=== PATIENT | female | born 1955 | race Caucasian/White ===

== ENCOUNTER 2022-10-04 12:38 | Emergency (ER) | payer MEDICARE ==
[2022-10-04] MEDS ORDERED: LORazepam 2 MG/ML SDV IM ONE (13:16)
== END 2022-10-04 14:35 | disposition home or self-care (01) ==
LOC: JP.ED 12:38
DX: J40 Bronchitis, not specified as acute or chronic (principal); F45.8 Other somatoform disorders; I10 Essential (primary) hypertension; E66.9 Obesity, unspecified; Z68.34 Body mass index [BMI] 34.0-34.9, adult; Z88.8 Allergy status to other drugs, medicaments and biological substances; Z79.82 Long term (current) use of aspirin; Z79.899 Other long term (current) drug therapy
CPT/HCPCS: 96372; 99284; J2060; 99283

== ENCOUNTER 2023-04-25 09:50 | Inpatient (IN) | payer MEDICARE ==
[2023-04-25] MEDS ORDERED: Ondansetron 4 MG/2 ML SDV IVPUSH ONE (10:34)
[2023-04-25] MEDS ORDERED: HYDROmorphone 0.5 MG/0.5 ML Syringe IVPUSH ONE (10:34)
[2023-04-25 10:40] LABS: CARBOXYHEMOGLOBIN 1.6 % (0.0-1.6); O2 SATURATION VENOUS 51.9; OXYHEMOGLOBIN 50.6 %; PH,VENOUS 7.505 (7.350-7.450); TOTAL HEMOGLOBIN 14.5 g/dL (12.0-16.0)
[2023-04-25 10:44] LABS: BASE EXCESS VENOUS -1.4 mm/L; BICARBONATE,VENOUS 19.7 mmol/L; PCO2 VENOUS 25.2 mm/Hg; PO2 VENOUS 25.4 mm/Hg
[2023-04-25] MEDS ORDERED: Sodium Chloride 0.9% 1,000 ML IV SCH ×2 (10:45→12:30)
[2023-04-25 10:47] LABS: HEMATOCRIT 40.2 % (34.3-46.0); MEAN CORPUSCULAR HGB CONC 34.8 g/dL (31.6-35.5); MEAN CORPUSCULAR VOLUME 86.3 fL (81.4-99.0); PLATELET COUNT,PLT 261 K/uL (130-375); RED BLOOD CELL COUNT 4.66 M/uL (3.77-5.24); WHITE BLOOD CELL COUNT,WBC 17.3 K/uL (3.2-11.0)
[2023-04-25 10:50] LABS: APPEARANCE,URINE CLEAR (CLEAR); BILIRUBIN,URINE NEGATIVE (NEGATIVE); COLOR,URINE YELLOW (YELLOW); GLUCOSE,URINE NEGATIVE (NEGATIVE); KETONES,URINE TRACE mg/dL (NEGATIVE); LEUKOCYTE ESTERASE,URINE TRACE (NEGATIVE); NITRITE,URINE NEGATIVE (NEGATIVE); OCCULT BLOOD,URINE SMALL (NEGATIVE); PROTEIN,URINE 30 mg/dL (NEGATIVE); UROBILINOGEN,URINE 0.2 EU/dL (0.2-1.0)
[2023-04-25 10:55] LABS: AMORPHOUS SEDIMENT,URINE NOT SEEN; BACTERIA,URINE MANY; EPITHELIAL CELLS,URINE FEW; MUCUS,URINE MODERATE; WBC,URINE 20-30 (0-5)
[2023-04-25] MEDS ORDERED: Levofloxacin/Dextrose 5%-Water 250 MG in Premix Bag 1 BAG IV ONE (11:06)
[2023-04-25 11:18] LABS: A/G RATIO 1.3 (1.2-2.2); ALANINE AMINOTRANSFERASE,ALT 34 U/L (12-78); ALBUMIN 4.1 g/dL (3.4-5.0); ALKALINE PHOSPHATASE 119 U/L (46-116); ASPARTATE AMNIOTRANSFERASE,AST 23 U/L (15-37); BILIRUBIN TOTAL 0.6 mg/dL (0.2-1.0); BLOOD UREA NITROGEN,BUN 26 mg/dL (7-18); CALCIUM 9.9 mg/dL (8.5-10.1); CARBON DIOXIDE,CO2 20 mmol/L (21-32); CHLORIDE,CL 99 mmol/L (100-108); CREATININE 1.3 mg/dL (0.6-1.0); EST CRCL DRUG DOSING (CG) 40.28 mL/min; ESTIMATED GFR 45 mL/min (>60); GLUCOSE RANDOM 144 mg/dL (74-106); PROTEIN TOTAL,TP 7.2 g/dL (6.4-8.2); SODIUM,NA 133 mmol/L (140-148)
[2023-04-25 11:20] LABS: BAND ABSOLUTE MAN 1.21 K/uL; BAND PERCENT MAN 7 % (5-11); EOSINOPHILS ABSOLUTE MAN 1.04 K/uL (0.00-0.40); EOSINOPHILS PERCENT MAN 6 % (2-4); LYMPHOCYTES ABSOLUTE MAN 1.04 K/uL (0.8-3.3); LYMPHOCYTES PERCENT MAN 6 % (24-44); MONOCYTES ABSOLUTE MAN 0.87 K/uL (0.20-0.90); MONOCYTES PERCENT MAN 5 % (2-6); NEUTROPHILS ABSOLUTE MAN 13.15 K/uL (1.0-7.6); SEG NEUTROPHILS PERCENT MAN 76 % (36-66)
[2023-04-25] MEDS ORDERED: Sodium Chloride 0.9% 10 ML Syringe FLUSH PRN ×2 (11:28→12:30)
[2023-04-25] MEDS ORDERED: Iopamidol 612 MG/ML 100 ML Bottle IV PRN (11:28)
[2023-04-25] MEDS ORDERED: Sodium Chloride 0.9% 50 ML IV SCH (11:30)
[2023-04-25] MEDS ORDERED: HYDROmorphone 0.5 MG/0.5 ML Syringe IVPUSH PRN (12:12)
[2023-04-25] MEDS ORDERED: Ondansetron 4 MG/2 ML SDV IV PRN (12:30)
[2023-04-25] MEDS ORDERED: Ampicillin/Sulbactam Na 1.5 GM in Sodium Chloride 0.9% 50 ML IV SCH (12:30)
[2023-04-25] MEDS ORDERED: Naloxone 0.4 MG/ML SDV IVPUSH PRN (12:38)
[2023-04-25] MEDS: Pantoprazole 40 MG Vial IVPUSH SCH (13:15)
[2023-04-25] MEDS: HYDROmorphone 0.5 MG/0.5 ML Syringe IVPUSH PRN ×4 (14:59→22:14)
[2023-04-25] MEDS: Acetaminophen 325 MG Tab PO PRN ×2 (15:35→19:35)
[2023-04-25] MEDS: Sodium Chloride 0.9% 1,000 ML IV SCH ×2 (15:36→23:17)
[2023-04-25] MEDS: Ampicillin/Sulbactam Na 1.5 GM in Sodium Chloride 0.9% 50 ML IV SCH (18:07)
[2023-04-25] MEDS: Rosuvastatin 10 MG Tab PO SCH (20:40)
[2023-04-25] MEDS: Losartan 50 MG Tab PO SCH (20:40)
[2023-04-26] MEDS: Ampicillin/Sulbactam Na 1.5 GM in Sodium Chloride 0.9% 50 ML IV SCH ×5 (00:17→23:51)
[2023-04-26] MEDS: HYDROmorphone 0.5 MG/0.5 ML Syringe IVPUSH PRN ×9 (00:18→23:47)
[2023-04-26] MEDS: Acetaminophen 325 MG Tab PO PRN ×3 (02:14→23:47)
[2023-04-26 04:21] LABS: BASOPHILS ABSOLUTE AUTO 0.04 K/uL (0.00-0.10); BASOPHILS PERCENT AUTO 0.3 % (0.1-1.3); EOSINOPHILS ABSOLUTE AUTO 0.08 K/uL (0.00-0.40); EOSINOPHILS PERCENT AUTO 0.6 % (0.0-5.4); HEMATOCRIT 32.7 % (34.3-46.0); HEMOGLOBIN 10.9 g/dL (11.2-15.5); IMMATURE GRAN ABSOLUTE AUTO 0.05 K/uL (0.00-0.23); IMMATURE GRAN PERCENT AUTO 0.4 % (0.0-0.7); LYMPHOCYTES PERCENT AUTO 10.1 % (11.4-47.7); MEAN CORPUSCULAR HEMOGLOBIN 29.8 pg (31.6-35.5); MEAN CORPUSCULAR HGB CONC 33.3 g/dL (31.6-35.5); MEAN CORPUSCULAR VOLUME 89.3 fL (81.4-99.0); MONOCYTES ABSOLUTE AUTO 1.41 K/uL (0.20-0.90); MONOCYTES PERCENT AUTO 10.9 % (3.3-12.6); NEUTROPHILS ABSOLUTE AUTO 10.05 K/uL (1.0-7.6); NEUTROPHILS PERCENT AUTO 77.7 % (40.0-78.1); PLATELET COUNT,PLT 189 K/uL (130-375); RED BLOOD CELL COUNT 3.66 M/uL (3.77-5.24); WHITE BLOOD CELL COUNT,WBC 12.9 K/uL (3.2-11.0)
[2023-04-26 04:36] LABS: ANION GAP 10.1 mmol/L (5.0-14.0); CALCIUM 8.6 mg/dL (8.5-10.1); CREATININE 1.3 mg/dL (0.6-1.0); EST CRCL DRUG DOSING (CG) 40.28 mL/min; MAGNESIUM 1.7 mg/dL (1.8-2.4); POTASSIUM,K 4.7 mmol/L (3.6-5.2)
[2023-04-26] MEDS: Sodium Chloride 0.9% 1,000 ML IV SCH (06:54)
[2023-04-26] MEDS: amLODIPine 5 MG Tab PO SCH (08:50)
[2023-04-26] MEDS: Sertraline 50 MG Tab PO SCH (08:51)
[2023-04-26] MEDS: Aspirin 81 MG Tab.EC PO SCH (08:52)
[2023-04-26] MEDS: Losartan 50 MG Tab PO SCH ×2 (08:53→20:34)
[2023-04-26] MEDS: Magnesium Sulfate/Water 2 GM in Premix Bag 1 BAG IV SCH ×2 (08:54→14:27)
[2023-04-26] MEDS: Magnesium Oxide 400 MG Tab PO SCH ×2 (08:54→20:34)
[2023-04-26] MEDS ORDERED: Non-Formulary Medication 1 Each (Sertraline [Zoloft] 100 MG Tablet) PO SCH (09:00)
[2023-04-26] MEDS: Pantoprazole 40 MG Vial IVPUSH SCH (11:43)
[2023-04-26] MEDS ORDERED: Sodium Chloride 0.9% 1,000 ML IV SCH (12:15)
[2023-04-26] MEDS: Rosuvastatin 10 MG Tab PO SCH (20:34)
[2023-04-27 04:45] LABS: HEMATOCRIT 30.9 % (34.3-46.0); HEMOGLOBIN 10.2 g/dL (11.2-15.5); MEAN CORPUSCULAR VOLUME 90.9 fL (81.4-99.0); RED BLOOD CELL COUNT 3.4 M/uL (3.77-5.24)
[2023-04-27] MEDS: HYDROmorphone 0.5 MG/0.5 ML Syringe IVPUSH PRN ×5 (04:50→21:01)
[2023-04-27 05:03] LABS: CALCIUM 8.5 mg/dL (8.5-10.1); CREATININE 1.1 mg/dL (0.6-1.0); EST CRCL DRUG DOSING (CG) 47.47 mL/min; MAGNESIUM 2.3 mg/dL (1.8-2.4); POTASSIUM,K 4.2 mmol/L (3.6-5.2)
[2023-04-27 05:07] LABS: ANION GAP 12.2 mmol/L (5.0-14.0)
[2023-04-27] MEDS: Ampicillin/Sulbactam Na 1.5 GM in Sodium Chloride 0.9% 50 ML IV SCH ×4 (07:06→23:56)
[2023-04-27] MEDS: Losartan 50 MG Tab PO SCH ×2 (08:54→21:02)
[2023-04-27] MEDS: Aspirin 81 MG Tab.EC PO SCH (08:54)
[2023-04-27] MEDS: Magnesium Oxide 400 MG Tab PO SCH ×2 (08:55→21:02)
[2023-04-27] MEDS: amLODIPine 5 MG Tab PO SCH (08:56)
[2023-04-27] MEDS: Sertraline 50 MG Tab PO SCH (08:57)
[2023-04-27] MEDS: Acetaminophen 325 MG Tab PO PRN ×2 (08:58→21:01)
[2023-04-27] MEDS: Rosuvastatin 10 MG Tab PO SCH (21:02)
[2023-04-28] MEDS: HYDROmorphone 0.5 MG/0.5 ML Syringe IVPUSH PRN ×6 (00:47→21:20)
[2023-04-28] MEDS: Ampicillin/Sulbactam Na 1.5 GM in Sodium Chloride 0.9% 50 ML IV SCH ×4 (05:31→23:49)
[2023-04-28] MEDS: Magnesium Oxide 400 MG Tab PO SCH ×2 (08:04→20:09)
[2023-04-28] MEDS: Aspirin 81 MG Tab.EC PO SCH (08:04)
[2023-04-28] MEDS: amLODIPine 5 MG Tab PO SCH (08:04)
[2023-04-28] MEDS: Losartan 50 MG Tab PO SCH ×2 (08:04→20:09)
[2023-04-28] MEDS: Sertraline 50 MG Tab PO SCH (08:04)
[2023-04-28] MEDS: Pantoprazole 40 MG Tab.CR PO SCH (08:05)
[2023-04-28] MEDS: Acetaminophen 325 MG Tab PO PRN (17:13)
[2023-04-28] MEDS: Rosuvastatin 10 MG Tab PO SCH (20:09)
[2023-04-29] MEDS: HYDROmorphone 0.5 MG/0.5 ML Syringe IVPUSH PRN ×2 (01:29→04:38)
[2023-04-29] MEDS: Ampicillin/Sulbactam Na 1.5 GM in Sodium Chloride 0.9% 50 ML IV SCH (06:21)
[2023-04-29] MEDS: Losartan 50 MG Tab PO SCH (08:45)
[2023-04-29] MEDS: Aspirin 81 MG Tab.EC PO SCH (08:46)
[2023-04-29] MEDS: Pantoprazole 40 MG Tab.CR PO SCH (08:47)
[2023-04-29] MEDS: amLODIPine 5 MG Tab PO SCH (08:47)
[2023-04-29] MEDS: Magnesium Oxide 400 MG Tab PO SCH (08:47)
[2023-04-29] MEDS: Sertraline 50 MG Tab PO SCH (08:48)
[2023-04-29] MEDS: Acetaminophen 325 MG Tab PO PRN (08:51)
[2023-04-29] MEDS: Acetaminophen/HYDROcodone 325-5 MG Tab PO PRN ×2 (10:18→14:19)
[2023-04-29] MEDS ORDERED: Amoxicillin/Clavulanate K 875-125 MG Tab PO SCH (11:00)
== END 2023-04-29 14:50 | disposition home or self-care (01) | DRG 872 ==
LOC: JP.ED 09:50 → JP.ICU 13:23
PROVIDERS: ADMIT Hospitalist; ATTEND Internal Medicine
PROC: 3E03329 Introduction of Other Anti-infective into Peripheral Vein, Percutaneous Approach (ICD-10-PCS; principal; 2023-04-25)
PROC: 4A033R1 Measurement of Arterial Saturation, Peripheral, Percutaneous Approach (ICD-10-PCS; 2023-04-25)
DX: A41.51 Sepsis due to Escherichia coli [E. coli] (principal); A04.9 Bacterial intestinal infection, unspecified; K92.1 Melena; N30.01 Acute cystitis with hematuria; E87.3 Alkalosis; A41.9 Sepsis, unspecified organism; E86.0 Dehydration; F41.9 Anxiety disorder, unspecified; I12.9 Hypertensive chronic kidney disease with stage 1 through stage 4 chronic kidney disease, or unspecified chronic kidney disease; N18.31 Chronic kidney disease, stage 3a; E21.3 Hyperparathyroidism, unspecified; E78.00 Pure hypercholesterolemia, unspecified; Z88.8 Allergy status to other drugs, medicaments and biological substances; G62.9 Polyneuropathy, unspecified; E66.9 Obesity, unspecified; Z68.34 Body mass index [BMI] 34.0-34.9, adult; Z90.49 Acquired absence of other specified parts of digestive tract; Z90.710 Acquired absence of both cervix and uterus; Z90.722 Acquired absence of ovaries, bilateral; Z90.10 Acquired absence of unspecified breast and nipple; Z98.890 Other specified postprocedural states; Z79.82 Long term (current) use of aspirin; Z79.899 Other long term (current) drug therapy; Z85.3 Personal history of malignant neoplasm of breast
CPT/HCPCS: 36415; 74177 ×2; 80053; 81001; 82272; 82803; 83605; 83690; 84443; 85025; 87040 ×2; 87086; 87088; 87186; 96361; 96365; 96375; 99285 ×2; C9113; J0295; J1170 ×2; J1956; J2405; J3490 ×3; J7030 ×2; Q9967; 80048; 83735; 85018; 85027; 99222; 99232; 99238; A9270-GY; J3475; U0002

== ENCOUNTER 2023-06-12 09:16 | Day surgery (SDC) | payer MEDICARE ==
[~2023-06-12 09:16] MED LIST: Midazolam 1 MG/ML 2 ML SDV ONE; Propofol 200 MG/20 ML SDV ONE; fentaNYL 50 MCG/ML SDV ONE
[2023-06-12] MEDS ORDERED: Lactated Ringers 1,000 ML IV SCH (10:00)
== END 2023-06-12 12:25 | disposition home or self-care (01) ==
LOC: JP.SDS 09:16
PROVIDERS: ATTEND Student in an Organized Health Care Education/Training Program
DX: K57.30 Diverticulosis of large intestine without perforation or abscess without bleeding (principal); K52.9 Noninfective gastroenteritis and colitis, unspecified; I12.9 Hypertensive chronic kidney disease with stage 1 through stage 4 chronic kidney disease, or unspecified chronic kidney disease; N18.9 Chronic kidney disease, unspecified; K21.9 Gastro-esophageal reflux disease without esophagitis; E66.9 Obesity, unspecified; Z68.32 Body mass index [BMI] 32.0-32.9, adult
CPT/HCPCS: 45378; J2250; J2704; J3010; J7120

== ENCOUNTER 2023-08-16 12:51 | Emergency (ER) | payer MEDICARE ==
[2023-08-16 13:30] LABS: BASE EXCESS VENOUS 1.8 mm/L; BASOPHILS ABSOLUTE AUTO 0.03 K/uL (0.00-0.10); BASOPHILS PERCENT AUTO 0.6 % (0.1-1.3); BICARBONATE,VENOUS 23.5 mmol/L; CARBOXYHEMOGLOBIN 2.7 % (0.0-1.6); EOSINOPHILS ABSOLUTE AUTO 0.06 K/uL (0.00-0.40); EOSINOPHILS PERCENT AUTO 1.1 % (0.0-5.4); HEMATOCRIT 38.1 % (34.3-46.0); IMMATURE GRAN PERCENT AUTO 0.2 % (0.0-0.7); LYMPHOCYTES ABSOLUTE AUTO 1.81 K/uL (0.8-3.3); LYMPHOCYTES PERCENT AUTO 34.4 % (11.4-47.7); MEAN CORPUSCULAR HEMOGLOBIN 29.4 pg (31.6-35.5); MEAN CORPUSCULAR HGB CONC 34.1 g/dL (31.6-35.5); MEAN CORPUSCULAR VOLUME 86.2 fL (81.4-99.0); MONOCYTES ABSOLUTE AUTO 0.59 K/uL (0.20-0.90); MONOCYTES PERCENT AUTO 11.2 % (3.3-12.6); NEUTROPHILS ABSOLUTE AUTO 2.76 K/uL (1.0-7.6); NEUTROPHILS PERCENT AUTO 52.5 % (40.0-78.1); O2 SATURATION VENOUS 71.5; OXYHEMOGLOBIN 68.9 %; PCO2 VENOUS 29.3 mm/Hg; PH,VENOUS 7.515 (7.350-7.450); PLATELET COUNT,PLT 231 K/uL (130-375); RED BLOOD CELL COUNT 4.42 M/uL (3.77-5.24); TOTAL HEMOGLOBIN 13.7 g/dL (12.0-16.0); WHITE BLOOD CELL COUNT,WBC 5.3 K/uL (3.2-11.0)
[2023-08-16 13:33] LABS: PO2 VENOUS 33.9 mm/Hg
[2023-08-16 13:34] LABS: IMMATURE GRAN ABSOLUTE AUTO 0.01 K/uL (0.00-0.23)
[2023-08-16] MEDS: LORazepam 2 MG/ML SDV IVPUSH ONE (13:37)
[2023-08-16] MEDS: Sodium Chloride 0.9% 1,000 ML IV ONE (13:39)
[2023-08-16 13:42] LABS: APPEARANCE,URINE CLEAR (CLEAR); BILIRUBIN,URINE NEGATIVE (NEGATIVE); COLOR,URINE YELLOW (YELLOW); GLUCOSE,URINE NEGATIVE (NEGATIVE); KETONES,URINE NEGATIVE (NEGATIVE); LEUKOCYTE ESTERASE,URINE TRACE (NEGATIVE); NITRITE,URINE NEGATIVE (NEGATIVE); OCCULT BLOOD,URINE NEGATIVE (NEGATIVE); PROTEIN,URINE NEGATIVE (NEGATIVE); UROBILINOGEN,URINE 0.2 EU/dL (0.2-1.0)
[2023-08-16 13:47] LABS: AMORPHOUS SEDIMENT,URINE NOT SEEN; AMPHETAMINES SCREEN, URINE NEGATIVE (NEGATIVE); BACTERIA,URINE NOT SEEN; BARBITURATE SCREEN,URINE NEGATIVE (NEGATIVE); BENZODIAZEPINES SCREEN,URINE NEGATIVE (NEGATIVE); EPITHELIAL CELLS,URINE NOT SEEN; METHADONE SCREEN, URINE NEGATIVE (NEGATIVE); METHAMPHETAMINES SCREEN, URINE NEGATIVE (NEGATIVE); MUCUS,URINE NOT SEEN; OXYCODONE SCREEN,URINE NEGATIVE (NEGATIVE); PROPOXYPHENE SCREEN,URINE NEGATIVE (NEGATIVE); RBC,URINE 0-5 (0-5); THC SCREEN,URINE 50 NG/ML NEGATIVE (NEGATIVE); WBC,URINE 0-5 (0-5)
[2023-08-16 13:50] LABS: PROTHROMBIN TIME 9.9 sec (9.2-10.6)
[2023-08-16 14:01] LABS: A/G RATIO 1.1 (1.2-2.2); ALANINE AMINOTRANSFERASE,ALT 34 U/L (12-78); ALBUMIN 3.7 g/dL (3.4-5.0); ALKALINE PHOSPHATASE 96 U/L (46-116); ANION GAP 15.2 mmol/L (5.0-14.0); ASPARTATE AMNIOTRANSFERASE,AST 17 U/L (15-37); BILIRUBIN TOTAL 0.5 mg/dL (0.2-1.0); BLOOD UREA NITROGEN,BUN 25 mg/dL (7-18); CALCIUM 9.4 mg/dL (8.5-10.1); CARBON DIOXIDE,CO2 24 mmol/L (21-32); CHLORIDE,CL 101 mmol/L (100-108); CREATININE 1.2 mg/dL (0.6-1.0); EST CRCL DRUG DOSING (CG) 43.03 mL/min; ESTIMATED GFR 49 mL/min (>60); GLUCOSE RANDOM 113 mg/dL (74-106); POTASSIUM,K 4.2 mmol/L (3.6-5.2); PRO B-TYPE NATRIUR PEPT,BNPPRO 78 pg/mL (5-125); PROTEIN TOTAL,TP 7.2 g/dL (6.4-8.2); SODIUM,NA 136 mmol/L (140-148); TROPONIN I HIGH SENSITIVITY 16.6 pg/mL (<=60.3)
[2023-08-16 14:16] LABS: CORONAVIRUS COVID-19 NAA NEGATIVE (NEGATIVE); INFLUENZA A NAA NEGATIVE (NEGATIVE); INFLUENZA B NAA NEGATIVE (NEGATIVE); RESPIRATORY SYNCYTIAL VIR NAA NEGATIVE (NEGATIVE)
== END 2023-08-16 15:16 | disposition home or self-care (01) ==
LOC: JP.ED 12:51
DX: F45.8 Other somatoform disorders (principal); R06.4 Hyperventilation; F41.9 Anxiety disorder, unspecified; I12.9 Hypertensive chronic kidney disease with stage 1 through stage 4 chronic kidney disease, or unspecified chronic kidney disease; N18.9 Chronic kidney disease, unspecified; E78.00 Pure hypercholesterolemia, unspecified; Z79.82 Long term (current) use of aspirin; Z79.899 Other long term (current) drug therapy
CPT/HCPCS: 0241U; 36415; 71045; 80053; 80305; 81001; 82803; 83605; 83880; 84484; 85025; 85379; 85610; 93005; 96374; 99285; J2060; J7030